=== PATIENT | female | born 2000 | race African-American/Black ===

== ENCOUNTER → 2019-05-26 | Emergency (ER) | payer MEDICAID ==
[~2019-05-26] VITALS: Ht 160 cm; Wt 65.8 kg
[~2019-05-26] MED LIST: ACETAMINOPHEN 325 MG TABLET ONE; ACETAMINOPHEN 325 MG TABLET PO ONE
[2019-05-26 07:55] VITALS: BP 125/69
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
== END | disposition home or self-care (01) ==
LOC: ER 07:50
DX: S60.812A Abrasion of left wrist, initial encounter (principal); S60.811A Abrasion of right wrist, initial encounter; S60.312A Abrasion of left thumb, initial encounter; S60.311A Abrasion of right thumb, initial encounter; M54.5 Low back pain; R00.0 Tachycardia, unspecified; V49.49XA Driver injured in collision with other motor vehicles in traffic accident, initial encounter; Y93.89 Activity, other specified; Y92.488 Other paved roadways as the place of occurrence of the external cause; Y99.8 Other external cause status
CPT/HCPCS: 73110; 73130-TC